=== PATIENT | female | born 1995 | race Caucasian/White ===

== ENCOUNTER → 2018-12-13 | Outpatient (CLI) | payer MEDICAID ==
[2018-12-13 14:30] LABS: APPEARANCE,URINE SLIGHTLY-CLOUDY; BILIRUBIN,URINE NEGATIVE (NEGATIVE); COLOR,URINE YELLOW; GLUCOSE, URINE NEGATIVE (NEGATIVE); KETONES,URINE NEGATIVE (NEGATIVE); LEUKOCYTE ESTERASE,URINE NEGATIVE (NEGATIVE); NITRITE,URINE NEGATIVE (NEGATIVE); PROTEIN,URINE NEGATIVE (NEGATIVE); URINE SPECIFIC GRAVITY 1.018; UROBILINOGEN,URINE NEGATIVE mg/dL (<2.0)
--- NOTE | 2018-12-13 14:45 | Non Stress Test Report ---
Non Stress Test Datetime Report Generated by CPN: 12/13/2018 14:44 DEMOGRAPHIC EGA NST: 35.6 INDICATION Indication for Study: Other Indication for Study (NST) Other: labor check MONITORING Monitor Explained: Monitor Explained; Test Explained; Patient Verbalized Understanding Time on Monitor: 12/13/2018 14:14 Time off Monitor: 12/13/2018 14:43 NST Duration: 29 NST INTERVENTIONS NST Interventions: PO Hydration; Reposition Patient Physician Notified NST: Dr Younger BABY A: [id number] BABY A Movement : Present Contraction Frequency : 0 FHR Baseline : 145 Accelerations : 15X15 Decelerations : None Variability : Moderate 6-25bpm NST Review: Meets Criteria for Reactive NST NST Review and Verified By : D Bellavance RN NST Results: Reactive NST REPORT Report Trigger: Send Report
[2018-12-13 14:47] LABS: URINE AMPHETAMINES SCREEN NEGATIVE; URINE BARBITURATES SCREEN NEGATIVE; URINE BENZODIAZEPINES SCREEN NEGATIVE; URINE COCAINE SCREEN NEGATIVE; URINE MARIJUANA (THC) SCREEN NEGATIVE; URINE METHADONE SCREEN NEGATIVE; URINE PHENCYCLIDINE SCREEN NEGATIVE
== END ==
LOC: LC 13:44
PROVIDERS: ATTEND Obstetrics & Gynecology
PROC: 4A1HXCZ Monitoring of Products of Conception, Cardiac Rate, External Approach (ICD-10-PCS; principal; 2018-12-13)
DX: Z34.93 Encounter for supervision of normal pregnancy, unspecified, third trimester (principal)
CPT/HCPCS: 59025; 80307; 81001

== ENCOUNTER 2019-10-27 13:33 | Outpatient (CLI) | payer MEDICAID ==
[2019-10-27 14:27] LABS: ABSOLUTE BASOPHILS # (AUTO) 0.1 10^3/uL (0.0-0.2); ABSOLUTE EOSINOPHILS # (AUTO) 0.3 10^3/uL (0.0-0.6); ABSOLUTE LYMPHOCYTES (AUTO) 2.3 10^3/uL (0.5-4.7); ABSOLUTE MONOCYTES (AUTO) 0.8 10^3/uL (0.1-1.4); ABSOLUTE NEUT (AUTO) 8.1 10^3/uL (1.7-8.2); BASOPHILS % (AUTO) 0.5 % (0-2); EOSINOPHILS % (AUTO) 2.3 % (0-6); HEMATOCRIT 31.9 % (36.0-47.0); HEMOGLOBIN 10.6 g/dL (12.0-15.5); LYMPHOCYTES % (AUTO) 20.2 % (13-45); MEAN CORPUSCULAR HEMOGLOBIN 26.1 pg (27.0-33.4); MEAN CORPUSCULAR HGB CONC 33.1 g/dL (32.0-36.0); MEAN CORPUSCULAR VOLUME 79 fl (80-97); MONOCYTES % (AUTO) 7.1 % (3-13); PLATELET COUNT 298 10^3/uL (150-450); RED BLOOD COUNT 4.05 10^6/uL (3.72-5.28); RED CELL DISTRIBUTION WIDTH 15.8 % (11.5-14.0); SEGMENTED NEUTROPHILS % (AUTO) 69.9 % (42-78); TOTAL CELLS COUNTED % (AUTO) 100 %; WHITE BLOOD COUNT 11.6 10^3/uL (4.0-10.5)
[2019-10-27 14:48] LABS: APPEARANCE,URINE SLIGHTLY-CLOUDY; BILIRUBIN,URINE NEGATIVE (NEGATIVE); COLOR,URINE YELLOW; GLUCOSE, URINE NEGATIVE (NEGATIVE); KETONES,URINE NEGATIVE (NEGATIVE); LEUKOCYTE ESTERASE,URINE NEGATIVE (NEGATIVE); NITRITE,URINE NEGATIVE (NEGATIVE); PROTEIN,URINE 30 mg/dL (NEGATIVE); URINE SPECIFIC GRAVITY 1.024; UROBILINOGEN,URINE NEGATIVE mg/dL (<2.0)
[2019-10-27 14:48] LABS: ALBUMIN 3.3 g/dL (3.5-5.0); ALKALINE PHOSPHATASE 54 U/L (38-126); ANION GAP 10 (5-19); ASPARTATE AMINO TRANSFERASE 15 U/L (14-36); BILIRUBIN,DIRECT 0.2 mg/dL (0.0-0.4); BILIRUBIN,TOTAL 0.2 mg/dL (0.2-1.3); BLOOD UREA NITROGEN 6 mg/dL (7-20); CALCIUM 9.3 mg/dL (8.4-10.2); CARBON DIOXIDE 23 mmol/L (22-30); CHLORIDE 103 mmol/L (98-107); GLUCOSE 86 mg/dL (75-110); POTASSIUM 3.9 mmol/L (3.6-5.0); TOTAL PROTEIN 6.7 g/dL (6.3-8.2); URIC ACID 5.4 mg/dL (2.5-6.2)
[2019-10-27] MEDS ORDERED: BUTALB/ACETAMINOPHEN/CAFFEINE 1 TAB EACH PO PRN (15:00)
[2019-10-27] MEDS ORDERED: RINGERS SOLUTION,LACTATED 1,000 ML IV ONE (15:01)
[2019-10-27] MEDS ORDERED: RINGERS SOLUTION,LACTATED 1,000 ML IV PRN (15:01)
[2019-10-27 15:03] LABS: URINE AMPHETAMINES SCREEN NEGATIVE; URINE BARBITURATES SCREEN NEGATIVE; URINE BENZODIAZEPINES SCREEN NEGATIVE; URINE COCAINE SCREEN NEGATIVE; URINE MARIJUANA (THC) SCREEN NEGATIVE; URINE METHADONE SCREEN NEGATIVE; URINE PHENCYCLIDINE SCREEN NEGATIVE
[2019-10-27 15:24] LABS: URINE CREATININE 189.6 mg/dL (16-327); URINE PROTEIN 9.2 mg/dL (<12)
== END 2019-10-27 16:24 | disposition home or self-care (01) ==
LOC: LC 13:33
PROVIDERS: ATTEND Student in an Organized Health Care Education/Training Program
PROC: 4A1HXCZ Monitoring of Products of Conception, Cardiac Rate, External Approach (ICD-10-PCS; principal; 2019-10-27)
DX: O47.03 False labor before 37 completed weeks of gestation, third trimester (principal); O99.283 Endocrine, nutritional and metabolic diseases complicating pregnancy, third trimester; E86.0 Dehydration; Z3A.28 28 weeks gestation of pregnancy
CPT/HCPCS: 36415; 80053; 80307; 81001; 82570; 83615; 84156; 84550; 85025; J3490

== ENCOUNTER 2019-11-07 14:57 | Outpatient (CLI) | payer MEDICAID ==
[2019-11-07 16:07] LABS: APPEARANCE,URINE SLIGHTLY-CLOUDY; BILIRUBIN,URINE NEGATIVE (NEGATIVE); COLOR,URINE YELLOW; GLUCOSE, URINE NEGATIVE (NEGATIVE); KETONES,URINE NEGATIVE (NEGATIVE); LEUKOCYTE ESTERASE,URINE TRACE (NEGATIVE); NITRITE,URINE NEGATIVE (NEGATIVE); PROTEIN,URINE 30 mg/dL (NEGATIVE); URINE SPECIFIC GRAVITY 1.023; UROBILINOGEN,URINE NEGATIVE mg/dL (<2.0)
[2019-11-07 16:20] LABS: URINE AMPHETAMINES SCREEN NEGATIVE; URINE BARBITURATES SCREEN NEGATIVE; URINE BENZODIAZEPINES SCREEN NEGATIVE; URINE COCAINE SCREEN NEGATIVE; URINE MARIJUANA (THC) SCREEN NEGATIVE; URINE METHADONE SCREEN NEGATIVE; URINE PHENCYCLIDINE SCREEN NEGATIVE
[2019-11-07 16:30] LABS: ABSOLUTE EOSINOPHILS # (AUTO) 0.2 10^3/uL (0.0-0.6); ABSOLUTE LYMPHOCYTES (AUTO) 2.4 10^3/uL (0.5-4.7); ABSOLUTE MONOCYTES (AUTO) 0.7 10^3/uL (0.1-1.4); ABSOLUTE NEUT (AUTO) 7.6 10^3/uL (1.7-8.2); BASOPHILS % (AUTO) 0.3 % (0-2); EOSINOPHILS % (AUTO) 2.1 % (0-6); HEMATOCRIT 33.7 % (36.0-47.0); HEMOGLOBIN 11.1 g/dL (12.0-15.5); LYMPHOCYTES % (AUTO) 21.6 % (13-45); MEAN CORPUSCULAR HEMOGLOBIN 25.8 pg (27.0-33.4); MEAN CORPUSCULAR HGB CONC 32.9 g/dL (32.0-36.0); MEAN CORPUSCULAR VOLUME 79 fl (80-97); MONOCYTES % (AUTO) 6.3 % (3-13); PLATELET COUNT 319 10^3/uL (150-450); RED BLOOD COUNT 4.29 10^6/uL (3.72-5.28); RED CELL DISTRIBUTION WIDTH 16.1 % (11.5-14.0); SEGMENTED NEUTROPHILS % (AUTO) 69.7 % (42-78); TOTAL CELLS COUNTED % (AUTO) 100 %; WHITE BLOOD COUNT 10.9 10^3/uL (4.0-10.5)
[2019-11-07 16:49] LABS: ALBUMIN 3.4 g/dL (3.5-5.0); ALKALINE PHOSPHATASE 63 U/L (38-126); ANION GAP 13 (5-19); ASPARTATE AMINO TRANSFERASE 16 U/L (14-36); BILIRUBIN,DIRECT 0.3 mg/dL (0.0-0.4); BILIRUBIN,TOTAL 0.3 mg/dL (0.2-1.3); BLOOD UREA NITROGEN 5 mg/dL (7-20); CALCIUM 9.2 mg/dL (8.4-10.2); CARBON DIOXIDE 22 mmol/L (22-30); CHLORIDE 101 mmol/L (98-107); GLUCOSE 110 mg/dL (75-110); POTASSIUM 3.9 mmol/L (3.6-5.0); TOTAL PROTEIN 6.7 g/dL (6.3-8.2); URIC ACID 5.3 mg/dL (2.5-6.2)
--- NOTE | 2019-11-07 17:32 | Non Stress Test Report ---
Non Stress Test Datetime Report Generated by CPN: 11/07/2019 17:32 DEMOGRAPHIC EGA NST: 31.4 MONITORING Monitor Explained: Monitor Explained; Test Explained; Patient Verbalized Understanding Time on Monitor: 11/07/2019 15:16 Time off Monitor: 11/07/2019 17:11 NST Duration: 115 NST INTERVENTIONS NST Interventions: PO Hydration Physician Notified NST: dr. tai BABY A: [id number] BABY A Movement : Present Contraction Frequency : irregular FHR Baseline : 140 Accelerations : 15X15 Decelerations : None Variability : Moderate 6-25bpm NST Review: Meets Criteria for Reactive NST NST Review and Verified By : C. Neil RN NST Results: Reactive NST COMMENTS NST Comments: provider on unit NST REPORT Report Trigger: Send Report
[2019-11-07 19:11] LABS: URINE CREATININE 173.7 mg/dL (16-327); URINE PROTEIN 7.9 mg/dL (<12)
== END 2019-11-07 17:15 | disposition home or self-care (01) ==
LOC: LC 14:57
PROVIDERS: ATTEND Obstetrics & Gynecology
DX: O26.892 Other specified pregnancy related conditions, second trimester (principal); R51 Headache; R20.0 Anesthesia of skin; O16.2 Unspecified maternal hypertension, second trimester; Z3A.31 31 weeks gestation of pregnancy
CPT/HCPCS: 36415; 80053; 80307; 81001; 82570; 83615; 84156; 84550; 85025

== ENCOUNTER 2019-11-30 10:56 | Outpatient (CLI) | payer MEDICAID ==
[2019-11-30 11:37] LABS: APPEARANCE,URINE CLOUDY; BILIRUBIN,URINE NEGATIVE (NEGATIVE); COLOR,URINE AMBER; GLUCOSE, URINE NEGATIVE (NEGATIVE); KETONES,URINE NEGATIVE (NEGATIVE); LEUKOCYTE ESTERASE,URINE SMALL (NEGATIVE); NITRITE,URINE NEGATIVE (NEGATIVE); PROTEIN,URINE 30 mg/dL (NEGATIVE); URINE SPECIFIC GRAVITY 1.018; UROBILINOGEN,URINE NEGATIVE mg/dL (<2.0)
[2019-11-30] MEDS ORDERED: HYDROXYZINE PAMOATE 50 MG CAPSULE ONE (11:42)
[2019-11-30] MEDS ORDERED: RINGERS SOLUTION,LACTATED 1,000 ML IV PRN (11:48)
[2019-11-30 11:51] LABS: URINE AMPHETAMINES SCREEN NEGATIVE; URINE BARBITURATES SCREEN NEGATIVE; URINE BENZODIAZEPINES SCREEN NEGATIVE; URINE COCAINE SCREEN NEGATIVE; URINE MARIJUANA (THC) SCREEN NEGATIVE; URINE METHADONE SCREEN NEGATIVE; URINE PHENCYCLIDINE SCREEN NEGATIVE
[2019-11-30] MEDS ORDERED: HYDROXYZINE PAMOATE 50 MG CAPSULE PO ONE (12:00)
--- NOTE | 2019-11-30 14:01 | Non Stress Test Report ---
Non Stress Test Datetime Report Generated by CPN: 11/30/2019 14:01 DEMOGRAPHIC Test Number: 3 EGA NST: 34.6 INDICATION Indication for Study (NST) Other: false labor VITAL SIGNS Temperature - NST: 98.2 MONITORING Monitor Explained: Monitor Explained; Test Explained Time on Monitor: 11/30/2019 11:19 Time off Monitor: 11/30/2019 12:33 NST Duration: 74 NST INTERVENTIONS NST Interventions: IV Fluids; Reposition Patient Physician Notified NST: Dr. Prakash on unit reviewed fht BABY A: [id number] BABY A Movement : Present Contraction Frequency : irregular FHR Baseline : 135 Accelerations : 15X15 Decelerations : None Variability : Moderate 6-25bpm NST Review: Meets Criteria for Reactive NST NST Review and Verified By : BRET Catalan NST Results: Reactive NST REPORT Report Trigger: Send Report
== END 2019-11-30 13:05 | disposition home or self-care (01) ==
LOC: LC 10:56
PROVIDERS: ATTEND Obstetrics & Gynecology
PROC: 4A1HXCZ Monitoring of Products of Conception, Cardiac Rate, External Approach (ICD-10-PCS; principal; 2019-11-30)
DX: O47.03 False labor before 37 completed weeks of gestation, third trimester (principal); Z3A.34 34 weeks gestation of pregnancy
CPT/HCPCS: 59025; 81001; 80307; J3490

== ENCOUNTER 2019-12-06 16:30 | Outpatient (CLI) | payer MEDICAID ==
[2019-12-06 17:34] LABS: APPEARANCE,URINE CLEAR; BILIRUBIN,URINE NEGATIVE (NEGATIVE); COLOR,URINE YELLOW; GLUCOSE, URINE NEGATIVE (NEGATIVE); KETONES,URINE TRACE mg/dL (NEGATIVE); LEUKOCYTE ESTERASE,URINE NEGATIVE (NEGATIVE); NITRITE,URINE NEGATIVE (NEGATIVE); PROTEIN,URINE 30 mg/dL (NEGATIVE); URINE SPECIFIC GRAVITY 1.018; UROBILINOGEN,URINE NEGATIVE mg/dL (<2.0)
--- NOTE | 2019-12-06 17:41 | Non Stress Test Report ---
Non Stress Test Datetime Report Generated by CPN: 12/06/2019 17:41 DEMOGRAPHIC EGA NST: 35.5 INDICATION Indication for Study (NST) Other: IUP at 35.5; Labor eval VITAL SIGNS Temperature - NST: 98.2 Pulse - NST: 109 RESP - NST: 16 NBPSYS NST: 114 NBPDIA NST: 75 MONITORING Monitor Explained: Monitor Explained; Test Explained; Patient Verbalized Understanding Time on Monitor: 12/06/2019 16:42 Time off Monitor: 12/06/2019 17:29 NST Duration: 47 NST INTERVENTIONS NST Interventions: None Physician Notified NST: Dr. Urena BABY A: [id number] BABY A Movement : Present Contraction Frequency : x1 FHR Baseline : 140 Accelerations : 15X15 Decelerations : None Variability : Moderate 6-25bpm NST Review: Meets Criteria for Reactive NST NST Review and Verified By : Constanza Lizama, RN NST Results: Reactive NST COMMENTS NST Comments: Dr. Urena on unit; strip reviewed NST REPORT Report Trigger: Send Report
[2019-12-06 17:48] LABS: URINE AMPHETAMINES SCREEN NEGATIVE; URINE BARBITURATES SCREEN NEGATIVE; URINE BENZODIAZEPINES SCREEN NEGATIVE; URINE COCAINE SCREEN NEGATIVE; URINE MARIJUANA (THC) SCREEN NEGATIVE; URINE METHADONE SCREEN NEGATIVE; URINE PHENCYCLIDINE SCREEN NEGATIVE
== END 2019-12-06 17:43 | disposition home or self-care (01) ==
LOC: LC 16:30
PROVIDERS: ATTEND Student in an Organized Health Care Education/Training Program
PROC: 4A1HXCZ Monitoring of Products of Conception, Cardiac Rate, External Approach (ICD-10-PCS; principal; 2019-12-06)
DX: O47.03 False labor before 37 completed weeks of gestation, third trimester (principal); Z3A.35 35 weeks gestation of pregnancy
CPT/HCPCS: 59025; 80307; 81001

== ENCOUNTER 2019-12-16 05:02 | Inpatient (IN) | payer MEDICAID ==
[2019-12-11 12:16] LABS: ABSOLUTE BASOPHILS # (AUTO) 0.1 10^3/uL (0.0-0.2); ABSOLUTE EOSINOPHILS # (AUTO) 0.1 10^3/uL (0.0-0.6); ABSOLUTE LYMPHOCYTES (AUTO) 2.3 10^3/uL (0.5-4.7); ABSOLUTE MONOCYTES (AUTO) 0.6 10^3/uL (0.1-1.4); ABSOLUTE NEUT (AUTO) 8.5 10^3/uL (1.7-8.2); BASOPHILS % (AUTO) 0.6 % (0-2); EOSINOPHILS % (AUTO) 0.9 % (0-6); HEMATOCRIT 33.1 % (36.0-47.0); HEMOGLOBIN 10.6 g/dL (12.0-15.5); LYMPHOCYTES % (AUTO) 20.1 % (13-45); MEAN CORPUSCULAR VOLUME 75 fl (80-97); MONOCYTES % (AUTO) 5.4 % (3-13); PLATELET COUNT 294 10^3/uL (150-450); RED BLOOD COUNT 4.41 10^6/uL (3.72-5.28); RED CELL DISTRIBUTION WIDTH 16.8 % (11.5-14.0); TOTAL CELLS COUNTED % (AUTO) 100 %; WHITE BLOOD COUNT 11.6 10^3/uL (4.0-10.5)
[2019-12-11 12:21] LABS: APPEARANCE,URINE CLOUDY; BILIRUBIN,URINE NEGATIVE (NEGATIVE); COLOR,URINE YELLOW; GLUCOSE, URINE NEGATIVE (NEGATIVE); KETONES,URINE TRACE mg/dL (NEGATIVE); LEUKOCYTE ESTERASE,URINE MODERATE (NEGATIVE); NITRITE,URINE NEGATIVE (NEGATIVE); PROTEIN,URINE 100 mg/dL (NEGATIVE); URINE SPECIFIC GRAVITY 1.028; UROBILINOGEN,URINE NEGATIVE mg/dL (<2.0)
[2019-12-11 12:24] LABS: ADD MANUAL MICROSCOPIC YES
[2019-12-11 12:44] LABS: BACTERIA,URINE 1+ /HPF
[2019-12-11 12:52] LABS: URINE AMPHETAMINES SCREEN NEGATIVE; URINE BARBITURATES SCREEN NEGATIVE; URINE BENZODIAZEPINES SCREEN NEGATIVE; URINE COCAINE SCREEN NEGATIVE; URINE MARIJUANA (THC) SCREEN NEGATIVE; URINE METHADONE SCREEN NEGATIVE; URINE PHENCYCLIDINE SCREEN NEGATIVE
[~2019-12-16 05:02] MED LIST: CEFAZOLIN SODIUM 2 GM in DEXTROSE 5%-WATER 100 ML IV PRN; LACTATED RINGERS 1000 ML IV PRN
[2019-12-16 05:58] LABS: ABSOLUTE BASOPHILS # (AUTO) 0.1 10^3/uL (0.0-0.2); ABSOLUTE EOSINOPHILS # (AUTO) 0.2 10^3/uL (0.0-0.6); ABSOLUTE LYMPHOCYTES (AUTO) 2.4 10^3/uL (0.5-4.7); ABSOLUTE MONOCYTES (AUTO) 0.6 10^3/uL (0.1-1.4); ABSOLUTE NEUT (AUTO) 8.2 10^3/uL (1.7-8.2); BASOPHILS % (AUTO) 0.6 % (0-2); EOSINOPHILS % (AUTO) 1.8 % (0-6); HEMATOCRIT 31.5 % (36.0-47.0); HEMOGLOBIN 10.1 g/dL (12.0-15.5); LYMPHOCYTES % (AUTO) 21.1 % (13-45); MEAN CORPUSCULAR HEMOGLOBIN 23.8 pg (27.0-33.4); MEAN CORPUSCULAR HGB CONC 31.9 g/dL (32.0-36.0); MEAN CORPUSCULAR VOLUME 75 fl (80-97); MONOCYTES % (AUTO) 5.3 % (3-13); PLATELET COUNT 263 10^3/uL (150-450); RED BLOOD COUNT 4.23 10^6/uL (3.72-5.28); RED CELL DISTRIBUTION WIDTH 16.7 % (11.5-14.0); SEGMENTED NEUTROPHILS % (AUTO) 71.2 % (42-78); TOTAL CELLS COUNTED % (AUTO) 100 %; WHITE BLOOD COUNT 11.5 10^3/uL (4.0-10.5)
[2019-12-16] MEDS ORDERED: OXYTOCIN 10 UNIT/ML VIAL ONE (07:14)
[2019-12-16] MEDS ORDERED: PROPOFOL INJ 200 MG/20 ML VIAL IV ONE (07:15)
[2019-12-16] MEDS ORDERED: EPHEDRINE SULFATE INJ 50 MG/1 ML AMPULE ONE (07:15)
[2019-12-16] MEDS ORDERED: FENTANYL CITRATE INJ/PF 100 MCG/2 ML AMPUL ONE (07:15)
[2019-12-16] MEDS ORDERED: OXYTOCIN/NORMAL SALINE 20 UNIT/1,000 ML RTUINJ ONE (07:15)
[2019-12-16] MEDS ORDERED: ACETAMINOPHEN 1,000 MG/100 ML RTUPB IV ONE (07:15)
[2019-12-16] MEDS ORDERED: CEFAZOLIN 1 GM/D5W RTU 2 GM/100 ML RTUPB IV ONE (07:32)
[2019-12-16] MEDS ORDERED: MORPHINE SULFATE 10 MG/ML INJ IV PRN ×2 (08:20→09:01)
[2019-12-16] MEDS ORDERED: FENTANYL CITRATE INJ/PF 100 MCG/2 ML AMPUL IV PRN ×3 (08:20)
[2019-12-16] MEDS ORDERED: DIPHENHYDRAMINE HCL 50 MG/ML VIAL IV PRN (08:20)
[2019-12-16] MEDS ORDERED: PROMETHAZINE HCL INJ 25 MG/1 ML VIAL IV PRN ×3 (08:20→09:01)
[2019-12-16] MEDS ORDERED: MEPERIDINE HCL/PF INJ 25 MG/1 ML DISP.SYRIN IV PRN (08:20)
[2019-12-16] MEDS ORDERED: LABETALOL HCL INJ 20 MG/4 ML DISP.SYRIN IV PRN (08:20)
[2019-12-16] MEDS ORDERED: SIMETHICONE 80 MG TAB.CHEW PO PRN (09:01)
[2019-12-16] MEDS ORDERED: DIPH/PERTUSS(ACELL)/TETANUS VAC/PF 0.5 ML SYR (>=10YO) IM PRN ×2 (09:01→10:00)
[2019-12-16] MEDS ORDERED: ACETAMINOPHEN 1,000 MG/100 ML RTUPB IV PRN (09:01)
[2019-12-16] MEDS ORDERED: OXYCODONE-ACETAMINOPHEN 5-325 MG TABLET PO PRN (09:01)
[2019-12-16] MEDS ORDERED: ACETAMINOPHEN 325 MG TABLET PO PRN (09:01)
[2019-12-16] MEDS ORDERED: OXYTOCIN/NORMAL SALINE 20 UNIT/1,000 ML RTUINJ IV PRN (09:01)
[2019-12-16] MEDS ORDERED: MEASLES,MUMPS&RUBELLA VACC/PF 0.5 ML VIAL SUBCUT PRN ×2 (09:01→10:00)
[2019-12-16] MEDS ORDERED: RINGERS SOLUTION,LACTATED 1,000 ML IV PRN (09:01)
--- NOTE | 2019-12-16 09:07 | Operative Report ---
Operative Report DATE OF SURGERY: 12/16/19 PREOPERATIVE DIAGNOSIS: IUP @ 39+ wks, previous c/section x 2. POSTOPERATIVE DIAGNOSIS: same OPERATION: Repeat low transverse hysterotomy section SURGEON: JACKSON LOUISE 1ST PRODUCT DEVELOPMENT CONSULTANT: SANJAY RODRIGUEZ ANESTHESIA: Spinal COMPLICATIONS: None ESTIMATED BLOOD LOSS: 650 cc INTRAOPERATIVE FINDINGS: Male cephalic presentation with Apgars of 8 and 9, dense abdominal wall adhesions. PROCEDURE: PROCEDURE IN DETAIL: The patient was taken to the operating room, prepared and draped in a normal sterile fashion in a supine position with a leftward tilt. A transverse skin incision was made with a scalpel and carried through to the underlying layer of fascia with the same scalpel. The fascia was excised in the midline and extended laterally with Yvonne. The fascia was then dissected from the rectus muscle sharply with Yvonne and the rectus muscle was divided and the peritoneal cavity was entered sharply with the same Metzenbaum. With good visualization of the bladder and the uterus the bladder blade was inserted. The hysterotomy was nicked with a scalpel and extended laterally with surgeon finger fraction. The was then delivered atraumatically. The nose and mouth were suctioned with a suction bulb, the cord was clamped and cut and handed off to awaiting pediatricians. Cord blood was collected. The placenta was removed manually. The uterus was exteriorized and cleared of clots and debris. The hysterotomy was closed with 0 Monocryl in a running, locked fashion. A second layer of the same suture was used to imbricate to ensure hemostasis. The uterus was returned to the abdomen and peritoneal cavity was cleared of clots and debris. The rectus muscle and peritoneum were repaired with mattress stitch of 2-0 Chromic. The fascia was closed with 0-Vicryl. The subcutaneous layer was closed with plain catgut and the skin was closed with 4-0 Vicryl. The patient tolerated the procedure well. Sponge, lap, and needle counts correct x2 and the patient was taken to recovery in stable condition.
[2019-12-16] MEDS ORDERED: MORPHINE SULFATE 10 MG/ML INJ ONE (10:03)
[2019-12-16] MEDS ORDERED: KETOROLAC TROMETHAMINE INJ/PF 30 MG/1 ML SDV ONE (10:03)
[2019-12-16] MEDS: KETOROLAC TROMETHAMINE INJ/PF 30 MG/1 ML SDV IV SCH ×2 (10:07→17:48)
[2019-12-16] MEDS ORDERED: ONDANSETRON HCL INJ/PF 4 MG/2 ML SDV ONE (11:16)
[2019-12-16] MEDS ORDERED: PHENYLEPHRINE HCL INJ/PF 10 MG/1 ML SDV ONE (11:16)
[2019-12-16] MEDS: DOCUSATE SODIUM 100 MG CAPSULE PO SCH ×2 (12:35→17:51)
[2019-12-16] MEDS: PRENATAL VITAMIN W DHA CAPSULE PO SCH (12:35)
[2019-12-16] MEDS: OXYCODONE-ACETAMINOPHEN 5-325 MG TABLET PO PRN ×3 (12:38→22:28)
[2019-12-17] MEDS: KETOROLAC TROMETHAMINE INJ/PF 30 MG/1 ML SDV IV SCH ×3 (01:17→17:12)
[2019-12-17 06:05] LABS: HEMATOCRIT 27.6 % (36.0-47.0); MEAN CORPUSCULAR HEMOGLOBIN 24.4 pg (27.0-33.4); MEAN CORPUSCULAR HGB CONC 32.6 g/dL (32.0-36.0); MEAN CORPUSCULAR VOLUME 75 fl (80-97); PLATELET COUNT 194 10^3/uL (150-450); RED BLOOD COUNT 3.69 10^6/uL (3.72-5.28); RED CELL DISTRIBUTION WIDTH 17.1 % (11.5-14.0); WHITE BLOOD COUNT 8.6 10^3/uL (4.0-10.5)
[2019-12-17] MEDS ORDERED: KETOROLAC TROMETHAMINE INJ/PF 30 MG/1 ML SDV IV ONE (06:30)
[2019-12-17] MEDS ORDERED: KETOROLAC TROMETHAMINE INJ/PF 30 MG/1 ML SDV ONE (06:54)
[2019-12-17] MEDS ORDERED: BUTALB/ACETAMINOPHEN/CAFFEINE 1 TAB EACH PO ONE (07:00)
[2019-12-17] MEDS: PRENATAL VITAMIN W DHA CAPSULE PO SCH (09:46)
[2019-12-17] MEDS: OXYCODONE-ACETAMINOPHEN 5-325 MG TABLET PO PRN ×2 (09:47→16:40)
[2019-12-17] MEDS: DOCUSATE SODIUM 100 MG CAPSULE PO SCH ×2 (09:49→17:18)
--- NOTE | 2019-12-17 09:59 | PDOC PROGRESS REPORT ---
Subjective-OB Progress Note for:: 12/17/19 Subjective: Pt resting, states she has been out of bed, no difficulty voiding, reports reg diet and +flatus. She did have an headache this am and reported partial loss of vision, and flashing vision. She was given Toradol IV and it is better but still present as a dull ache. Bp was slightly elevated 150/88 and repeat 144/77. Physical Exam (OB) Vital Signs: Temp Pulse Resp BP Pulse Ox 97.5 F 86 16 150/88 H 98 12/17/19 07:55 12/17/19 07:55 12/17/19 07:55 12/17/19 07:55 12/17/19 07:55 Intake & Output 12/16/19 12/17/19 12/18/19 06:59 06:59 06:59 Intake Total 1360 Output Total 550 400 Balance 810 -400 Weight 130.635 kg - PIH/Pre-Eclampsia Headache: Present Epigastric Pain: No Visual Changes: No - none now - Dressing Removed: No Incision: Dressing Closure Type: Surgical Glue - Lochia Lochia Amount: Small 10-25 ml Lochia Color: Rubra/Red - Abdomen Description: Soft, Round Hernia Present: No Fundal Description: Firm, Midline Fundal Height: u/u - u/2 Objective-Diagnostic Laboratory: 12/17/19 05:53 12/17/19 12/17/19 05:53 05:53 WBC 8.6 RBC 3.69 L Hgb 9.0 L Hct 27.6 L MCV 75 L MCH 24.4 L MCHC 32.6 RDW 17.1 H Plt Count 194 Blood Type A NEGATIVE Assessment and Plan(PN) - Assessment and Plan (1) Status post repeat low transverse section Is this a current diagnosis for this admission?: Yes - Time Spent with Patient Time with patient: Less than 15 minutes Medications reviewed and adjusted accordingly: Yes - Disposition Anticipated Discharge: Home Within: within 24 hours
[2019-12-17 10:20] LABS: ALBUMIN 2.6 g/dL (3.5-5.0); ALKALINE PHOSPHATASE 58 U/L (38-126); ANION GAP 5 (5-19); ASPARTATE AMINO TRANSFERASE 25 U/L (14-36); BILIRUBIN,TOTAL 0.2 mg/dL (0.2-1.3); BLOOD UREA NITROGEN 8 mg/dL (7-20); CALCIUM 8.7 mg/dL (8.4-10.2); CARBON DIOXIDE 24 mmol/L (22-30); CHLORIDE 105 mmol/L (98-107); GLUCOSE 79 mg/dL (75-110); POTASSIUM 4.3 mmol/L (3.6-5.0); TOTAL PROTEIN 5.2 g/dL (6.3-8.2); URIC ACID 7.4 mg/dL (2.5-6.2)
[2019-12-17] MEDS: IBUPROFEN 800 MG TABLET PO SCH ×3 (13:13→23:57)
[2019-12-18] MEDS: OXYCODONE-ACETAMINOPHEN 5-325 MG TABLET PO PRN ×4 (00:05→23:41)
[2019-12-18] MEDS: IBUPROFEN 800 MG TABLET PO SCH ×4 (05:18→23:40)
[2019-12-18] MEDS: PRENATAL VITAMIN W DHA CAPSULE PO SCH (09:41)
[2019-12-18] MEDS: DOCUSATE SODIUM 100 MG CAPSULE PO SCH ×2 (09:41→17:50)
[2019-12-18] MEDS ORDERED: FERRIC CARBOXYMALTOSE INJ 750 MG/15 ML VIAL IV ONE (12:19)
[2019-12-18] MEDS ORDERED: FERRIC CARBOXYMALTOSE 750 MG in NORMAL SALINE 250 ML IV ONE (15:00)
--- NOTE | 2019-12-18 15:45 | PDOC PROGRESS REPORT ---
Subjective-OB Progress Note for:: 12/18/19 Subjective: 24yo G3 now P3 s/p repeat ppd 2. Pt ambulating and voiding without difficulty. Reports pain well controlled with medications. Reports headache on and off since delivery. Dull at this time but pretty intense this AM. States it gets worse when standing or sitting up. Denies sob/lightheadedness or other concerns. Baby in NICU at this time Physical Exam (OB) Vital Signs: Temp Pulse Resp BP Pulse Ox 97.6 F 93 18 145/88 H 98 12/18/19 15:14 12/18/19 15:14 12/18/19 15:14 12/18/19 15:14 12/18/19 15:14 Intake & Output 12/17/19 12/18/19 12/19/19 06:59 06:59 06:59 Intake Total 1360 1500 Output Total 550 400 Balance 810 1100 - General General Appearance: Appears well In distress: None - PIH/Pre-Eclampsia DTR's: 2 + Clonus: Negative Headache: Present - nurse in room during rounds, encouraged to contact anesthesiologist at this time to rule out spinal headache. Will repeat CBC, uric acid and CMP at this time. Some elevations in bp since delivery, will continue to observe for need of antyhypertensives Epigastric Pain: No Visual Changes: No - Dressing Removed: No Incision: Dressing Closure Type: opsite - Lochia Lochia Amount: Scant < 10 ml Lochia Color: Rubra/Red - Abdomen Description: Soft, Round Hernia Present: No Fundal Description: Midline Fundal Height: u/u - u/2 - Respiratory Respiratory Status: No respiratory distress - Extremities Upper extremity: Normal inspection Lower extremities: Edema - Neurological Cognition: Normal Orientation: AAOx4 - Psychological Associated symptoms: Normal affect, Normal mood Objective-Diagnostic Laboratory: 12/17/19 05:53 12/17/19 05:53 12/17/19 05:53 Blood Type A NEGATIVE Assessment and Plan(PN) - Assessment and Plan (1) Anemia complicating , third trimester Is this a current diagnosis for this admission?: Yes Plan: increase dietary iron and FeSO4 BID (2) Acute blood loss anemia Is this a current diagnosis for this admission?: Yes Plan: IV injectafer to be given at this time, continue to monitor (3) headache Is this a current diagnosis for this admission?: Yes Plan: consult anesthesia to rule out spinal headache, labs re-drawn, continue to monitor for s/s of pre-e. (4) Status post repeat low transverse section Is this a current diagnosis for this admission?: Yes Plan: Routine pp care (5) Hypertension, condition or complication Is this a current diagnosis for this admission?: Yes Plan: continue to monitor for s/s of pre-e, labs pending at this time - Time Spent with Patient Time with patient: Less than 15 minutes Medications reviewed and adjusted accordingly: Yes - Disposition Anticipated Discharge: Home Within: within 24 hours
[2019-12-18 16:03] LABS: HEMOGLOBIN 8.6 g/dL (12.0-15.5); MEAN CORPUSCULAR HEMOGLOBIN 24.8 pg (27.0-33.4); MEAN CORPUSCULAR VOLUME 75 fl (80-97); PLATELET COUNT 248 10^3/uL (150-450); RED BLOOD COUNT 3.45 10^6/uL (3.72-5.28); RED CELL DISTRIBUTION WIDTH 16.7 % (11.5-14.0); WHITE BLOOD COUNT 9.7 10^3/uL (4.0-10.5)
[2019-12-18 16:17] LABS: ALBUMIN 2.8 g/dL (3.5-5.0); ALKALINE PHOSPHATASE 54 U/L (38-126); ANION GAP 10 (5-19); ASPARTATE AMINO TRANSFERASE 23 U/L (14-36); BILIRUBIN,DIRECT 0.2 mg/dL (0.0-0.4); BILIRUBIN,TOTAL 0.2 mg/dL (0.2-1.3); BLOOD UREA NITROGEN 10 mg/dL (7-20); CARBON DIOXIDE 25 mmol/L (22-30); CHLORIDE 103 mmol/L (98-107); GLUCOSE 108 mg/dL (75-110); POTASSIUM 4.2 mmol/L (3.6-5.0); TOTAL PROTEIN 5.8 g/dL (6.3-8.2); URIC ACID 6.8 mg/dL (2.5-6.2)
[2019-12-19] MEDS: IBUPROFEN 800 MG TABLET PO SCH ×2 (05:06→13:37)
[2019-12-19] MEDS: PRENATAL VITAMIN W DHA CAPSULE PO SCH (09:18)
[2019-12-19] MEDS: OXYCODONE-ACETAMINOPHEN 5-325 MG TABLET PO PRN ×2 (09:18→13:39)
[2019-12-19] MEDS: DOCUSATE SODIUM 100 MG CAPSULE PO SCH (09:18)
--- NOTE | 2019-12-19 12:01 | PDOC PROGRESS REPORT ---
Subjective-OB Progress Note for:: 12/19/19 Subjective: Ready for discharge. Physical Exam (OB) Vital Signs: Temp Pulse Resp BP Pulse Ox 98.0 F 96 18 153/86 H 100 12/19/19 11:34 12/19/19 11:34 12/19/19 11:34 12/19/19 11:34 12/19/19 11:34 Intake & Output 12/18/19 12/19/19 12/20/19 06:59 06:59 06:59 Intake Total 1500 865 Output Total 400 Balance 1100 865 - PIH/Pre-Eclampsia DTR's: 2 + Clonus: Negative Headache: Absent Epigastric Pain: No Visual Changes: No - Dressing Removed: No Incision: Dressing, Well Approximated Closure Type: opsite - Lochia Lochia Amount: Scant < 10 ml Lochia Color: Rubra/Red - Abdomen Description: Tender, Soft, Round Hernia Present: No Bowel Sounds: Normoactive Flatus Presence: Present Stool: Yes Fundal Description: Firm, Midline Fundal Height: u/u - u/2 Objective-Diagnostic Laboratory: 12/18/19 15:55 12/18/19 15:55 12/18/19 12/18/19 15:55 15:55 WBC 9.7 RBC 3.45 L Hgb 8.6 L Hct 26.0 L MCV 75 L MCH 24.8 L MCHC 33.0 RDW 16.7 H Plt Count 248 Sodium 137.5 Potassium 4.2 Chloride 103 Carbon Dioxide 25 Anion Gap 10 BUN 10 Creatinine 0.45 L Est GFR ( Amer) > 60 Glucose 108 Uric Acid 6.8 H Calcium 9.0 Total Bilirubin 0.2 AST 23 Alkaline Phosphatase 54 Total Protein 5.8 L Albumin 2.8 L Assessment and Plan(PN) - Time Spent with Patient Medications reviewed and adjusted accordingly: Yes - Disposition Anticipated Discharge: Home
--- NOTE | 2019-12-19 12:22 | PDOC DISCHARGE SUMMARY ---
Impression - Admit/DC Date/PCP Admission Date/Primary Care Provider: 12/16/19 05:02 JACKSON LOUISE MD Discharge Date: 12/19/19 - Discharge Diagnosis (1) Status post repeat low transverse section Is this a current diagnosis for this admission?: Yes (2) Anemia complicating , third trimester Is this a current diagnosis for this admission?: Yes (3) Acute blood loss anemia Is this a current diagnosis for this admission?: Yes (4) headache Is this a current diagnosis for this admission?: Yes (5) Hypertension, condition or complication Is this a current diagnosis for this admission?: Yes - Additional Information Resuscitation Status: Full Code Discharge Diet: Regular Discharge Activity: Activity As Tolerated, Balance Activity w/Rest, No Lifting Over 10 Pounds, No Lifting/Push/Pulling, Non-Ambulatory Child, Pelvic Rest, Slowly Increase Activity, No tub bath Referrals: JACKSON LOUISE MD [Primary Care Provider] - Prescriptions: Oxycodone HCl/Acetaminophen [Percocet 5-325 mg Tablet] 1 tab PO Q4HP PRN #20 tablet PRN Reason: Ferrous Sulfate [Feosol 325 mg Tablet] 325 mg PO DAILY #60 tab Ibuprofen [Motrin 800 mg Tablet] 800 mg PO Q6 #30 tablet Home Medications: No122/Iron/Folic Acid [ Multi Tablet] 1 cap PO DAILY 12/13/18 Acetaminophen [Tylenol] 2 tab PO Q4HP PRN 12/06/19 Calcium Carbonate [Tums Chewable 500 mg Tab.chew] 500 mg PO PRN PRN 12/11/19 Ferrous Sulfate [Feosol 325 mg Tablet] 325 mg PO DAILY #60 tab 12/19/19 Ibuprofen [Motrin 800 mg Tablet] 800 mg PO Q6 #30 tablet 12/19/19 Oxycodone HCl/Acetaminophen [Percocet 5-325 mg Tablet] 1 tab PO Q4HP PRN #20 tablet 12/19/19 HPI Gestational Age: 37 wks Reason(s) for Admission: Ceasarean Section-Repeat Procedures: Ultrasound Intrapartum Procedure(s): : Low Cervical, Transverse Results Laboratory Results: WBC 9.7 10^3/uL (4.0-10.5) 12/18/19 15:55 RBC 3.45 10^6/uL (3.72-5.28) L 12/18/19 15:55 Hgb 8.6 g/dL (12.0-15.5) L 12/18/19 15:55 Hct 26.0 % (36.0-47.0) L 12/18/19 15:55 MCV 75 fl (80-97) L 12/18/19 15:55 MCH 24.8 pg (27.0-33.4) L 12/18/19 15:55 MCHC 33.0 g/dL (32.0-36.0) 12/18/19 15:55 RDW 16.7 % (11.5-14.0) H 12/18/19 15:55 Plt Count 248 10^3/uL (150-450) 12/18/19 15:55 Lymph % (Auto) 21.1 % (13-45) 12/16/19 05:50 [place] % (Auto) 5.3 % (3-13) 12/16/19 05:50 Eos % (Auto) 1.8 % (0-6) 12/16/19 05:50 Baso % (Auto) 0.6 % (0-2) 12/16/19 05:50 Absolute Neuts (auto) 8.2 10^3/uL (1.7-8.2) 12/16/19 05:50 Absolute Lymphs (auto) 2.4 10^3/uL (0.5-4.7) 12/16/19 05:50 Absolute Monos (auto) 0.6 10^3/uL (0.1-1.4) 12/16/19 05:50 Absolute Eos (auto) 0.2 10^3/uL (0.0-0.6) 12/16/19 05:50 Absolute Basos (auto) 0.1 10^3/uL (0.0-0.2) 12/16/19 05:50 Seg Neutrophils % 71.2 % (42-78) 12/16/19 05:50 Sodium 137.5 mmol/L (137-145) 12/18/19 15:55 Potassium 4.2 mmol/L (3.6-5.0) 12/18/19 15:55 Chloride 103 mmol/L (98-107) 12/18/19 15:55 Carbon Dioxide 25 mmol/L (22-30) 12/18/19 15:55 Anion Gap 10 (5-19) 12/18/19 15:55 BUN 10 mg/dL (7-20) 12/18/19 15:55 Creatinine 0.45 mg/dL (0.52-1.25) L 12/18/19 15:55 Est GFR ( Amer) > 60 (>60) 12/18/19 15:55 Est GFR (MDRD) Non-Af > 60 (>60) 12/18/19 15:55 Glucose 108 mg/dL (75-110) 12/18/19 15:55 Uric Acid 6.8 mg/dL (2.5-6.2) H 12/18/19 15:55 Calcium 9.0 mg/dL (8.4-10.2) 12/18/19 15:55 Total Bilirubin 0.2 mg/dL (0.2-1.3) 12/18/19 15:55 Direct Bilirubin 0.2 mg/dL (0.0-0.4) 12/18/19 15:55 Neonat Total Bilirubin Not Reportable 12/18/19 15:55 Neonat Direct Bilirubin Not Reportable 12/18/19 15:55 Neonat Indirect Bili Not Reportable 12/18/19 15:55 AST 23 U/L (14-36) 12/18/19 15:55 ALT 11 U/L (<35) 12/18/19 15:55 Alkaline Phosphatase 54 U/L (38-126) 12/18/19 15:55 Lactate Dehydrogenase 208 U/L (120-246) 12/17/19 05:53 Total Protein 5.8 g/dL (6.3-8.2) L 12/18/19 15:55 Albumin 2.8 g/dL (3.5-5.0) L 12/18/19 15:55 Urine Color YELLOW 12/11/19 11:36 Urine Appearance CLOUDY 12/11/19 11:36 Urine pH 6.0 (5.0-9.0) 12/11/19 11:36 Ur Specific [place] 1.028 12/11/19 11:36 Urine Protein 100 mg/dL (NEGATIVE) H 12/11/19 11:36 Urine Glucose (UA) NEGATIVE mg/dL (NEGATIVE) 12/11/19 11:36 Urine Ketones TRACE mg/dL (NEGATIVE) H 12/11/19 11:36 Urine Blood NEGATIVE (NEGATIVE) 12/11/19 11:36 Urine Nitrite NEGATIVE (NEGATIVE) 12/11/19 11:36 Urine Bilirubin NEGATIVE (NEGATIVE) 12/11/19 11:36 Urine Urobilinogen NEGATIVE mg/dL (<2.0) 12/11/19 11:36 Ur Leukocyte Esterase MODERATE (NEGATIVE) H 12/11/19 11:36 Urine RBC 1-5 /HPF 12/11/19 11:36 Urine WBC 10-20 /HPF 12/11/19 11:36 Ur Squamous Epith Cells MODERATE /HPF 12/11/19 11:36 Urine Bacteria 1+ /HPF 12/11/19 11:36 Urine Mucus 2+ 12/11/19 11:36 Urine Ascorbic Acid NEGATIVE (NEGATIVE) 12/11/19 11:36 Urine Opiates Screen NEGATIVE 12/11/19 11:36 Urine Methadone Screen NEGATIVE 12/11/19 11:36 Ur Barbiturates Screen NEGATIVE 12/11/19 11:36 Ur Phencyclidine Scrn NEGATIVE 12/11/19 11:36 Ur Amphetamines Screen NEGATIVE 12/11/19 11:36 U Benzodiazepines Scrn NEGATIVE 12/11/19 11:36 Urine Cocaine Screen NEGATIVE 12/11/19 11:36 U Marijuana (THC) Screen NEGATIVE 12/11/19 11:36 Blood Type A NEGATIVE 12/17/19 05:53 Antibody Screen NEGATIVE 12/14/19 11:30 Screen NEGATIVE 12/17/19 05:53 Plan Plan of Treatment: Follow up at [facility] in 1 wk. Time Spent: Less than 30 Minutes
[2019-12-19 12:51] VITALS: BP 127/62
== END 2019-12-19 14:00 | disposition home or self-care (01) | DRG 787 ==
LOC: 2S 05:02
PROVIDERS: ADMIT Obstetrics & Gynecology; ATTEND Obstetrics & Gynecology
PROC: 10D00Z1 Extraction of Products of Conception, Low, Open Approach (ICD-10-PCS; principal; 2019-12-16 07:45)
PROC: 3E0234Z Introduction of Serum, Toxoid and Vaccine into Muscle, Percutaneous Approach (ICD-10-PCS; 2019-12-17)
DX: O34.219 Maternal care for unspecified type scar from previous cesarean delivery (principal); D62 Acute posthemorrhagic anemia; Z30.2 Encounter for sterilization; O99.214 Obesity complicating childbirth; E66.9 Obesity, unspecified; O99.89 Other specified diseases and conditions complicating pregnancy, childbirth and the puerperium; O26.893 Other specified pregnancy related conditions, third trimester; N73.6 Female pelvic peritoneal adhesions (postinfective); O99.02 Anemia complicating childbirth; Z67.11 Type A blood, Rh negative; O16.4 Unspecified maternal hypertension, complicating childbirth; Z3A.37 37 weeks gestation of pregnancy; Z37.0 Single live birth
CPT/HCPCS: 1961; 36415; 80053; 80307; 81001; 83615; 84550; 85025; 85027; 85461; 86850; 86900; 86901; 94760; 94799; J0131; J0690; J1439; J1885; J2270; J2370; J2405; J2590; J2704; J2790; J3010; J3490; J7050; J7060